=== PATIENT | female | born 1980 | race Caucasian/White ===

== ENCOUNTER → 2020-01-26 10:14 | Outpatient (REF) | payer BC, SELFPAY | LOC: ANHLAB 10:14 | PROVIDERS: PCP Obstetrics & Gynecology Gynecology; Visit Provider Nurse Practitioner | DX: C43.71 Malignant melanoma of right lower limb, including hip (principal); D22.5 Melanocytic nevi of trunk | CPT/HCPCS: 88305; 88342 ==

== ENCOUNTER → 2020-02-02 11:12 | Outpatient (REF) | payer BC, SELFPAY | LOC: ANHLAB 11:12 | PROVIDERS: PCP Obstetrics & Gynecology Gynecology; Visit Provider Nurse Practitioner | DX: C43.71 Malignant melanoma of right lower limb, including hip (principal) | CPT/HCPCS: 88305 ==

== ENCOUNTER 2022-07-30 12:20 | Outpatient (NON) | payer BC, SELFPAY | END 2022-07-30 12:21 | disposition home or self-care (01) | PROVIDERS: PCP Obstetrics & Gynecology Gynecology; Visit Provider Nurse Practitioner | DX: L81.4 Other melanin hyperpigmentation (principal); L57.0 Actinic keratosis | CPT/HCPCS: 88305 ==

== ENCOUNTER 2023-02-05 07:00 | Outpatient (NON) | payer BC, SELFPAY | END 2023-02-05 07:01 | disposition home or self-care (01) | PROVIDERS: PCP Obstetrics & Gynecology Gynecology; Visit Provider Nurse Practitioner | DX: D48.5 Neoplasm of uncertain behavior of skin (principal) | CPT/HCPCS: 88305 ==